=== PATIENT | male | born 2000 | race Two or more races ===

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

== ENCOUNTER 2021-08-03 19:52 | Emergency (ER) | payer MEDICAID ==
[~2021-08-03] VITALS: Ht 172.7 cm; Wt 59.0 kg
[2021-08-03] MEDS ORDERED: LIDOCAINE HCL/EPINEPHRINE 1%-EPI 1:100,000 50 ML VIAL INFIL ONE (20:15)
[2021-08-03] MEDS ORDERED: LIDOCAINE HCL/EPINEPHRINE 1%-EPI 1:100,000 20 ML VIAL INFIL NR (20:45)
[2021-08-03] MEDS ORDERED: IBUPROFEN 600MG TABLET PO ONE (22:45)
[2021-08-03] MEDS ORDERED: TETANUS, DIPHTHERIA, PERTUSSIS VAC/PF 0.5ML (>10YR OLD) IM ONE (22:45)
[2021-08-03] MEDS ORDERED: BACITRACIN ZINC OINT UDPKT TOP ONE (22:45)
[2021-08-03 23:40] VITALS: BP 126/64
== END 2021-08-03 23:51 | disposition home or self-care (01) ==
LOC: ER 19:52
DX: S61.511A Laceration without foreign body of right wrist, initial encounter (principal); Z98.890 Other specified postprocedural states; X58.XXXA Exposure to other specified factors, initial encounter; Y93.89 Activity, other specified; Y92.89 Other specified places as the place of occurrence of the external cause; Y99.8 Other external cause status
CPT/HCPCS: 12002; 90471; 90715; 99283; J3490

== ENCOUNTER 2022-04-05 10:27 | Emergency (ER) | payer MEDICAID ==
[~2022-04-05] VITALS: Ht 170.2 cm; Wt 63.0 kg
[2022-04-05 10:47] VITALS: BP 124/85
[2022-04-05] MEDS ORDERED: ONDA4TAB11 PO (10:54)
[2022-04-05] MEDS ORDERED: KETOROLAC 60MG/2ML VIAL IM STA (11:35)
[2022-04-05] MEDS ORDERED: FAMOTIDINE 20MG TABLET PO ONE (11:45)
[2022-04-05] MEDS ORDERED: METOCLOPRAMIDE HCL 10MG/2ML VIAL IM ONE (11:45)
[2022-04-05 12:04] LABS: CLARITY URINE CLEAR (CLEAR); COLOR URINE YELLOW (YELLOW); KETONES URINE 3+ (NEGATIVE); LEUKOCYTE ESTERASE URINE NEGATIVE (NEGATIVE); NITRITE URINE NEGATIVE (NEGATIVE); OCCULT BLOOD URINE NEGATIVE (NEGATIVE); PH URINE 6.5 (4.5-8.0); PROTEIN URINE NEGATIVE (NEGATIVE); SPECIFIC GRAVITY URINE 1.023 (1.005-1.030); UROBILINOGEN URINE 0.2 E.U./dL (0.2-1.0)
[2022-04-05 12:07] LABS: BASOPHILS % 0.6 % (0.0-2.0); EOSINOPHILS % 0.1 % (0.0-5.0); HEMOGLOBIN. 15.2 g/dL (14.0-18.0); LYMPHOCYTES % 20.3 % (20.0-50.0); MEAN CORPUSCULAR HEMOGLOBIN 32.1 pg (28.0-32.0); MEAN CORPUSCULAR VOLUME 95.2 fL (80.0-94.0); MEAN PLATELET VOLUME 9.5 fl (7.4-10.4); MONOCYTES % 6.6 % (2.0-8.0); NEUTROPHILS % 72.4 % (40.0-76.0); PLATELET 269 x1000/uL (130-400); RED BLOOD CELL COUNT 4.73 mill/uL (4.7-6.1); RED CELL DISTRIBUTION WIDTH 12.5 % (11.6-14.6)
[2022-04-05 12:14] LABS: CHLORIDE 107 mEq/L (98-107)
[2022-04-05] MEDS ORDERED: MECL-159 MT (13:48)
[2022-04-05] MEDS ORDERED: NAPR-681 PO (13:48)
== END 2022-04-05 14:26 | disposition home or self-care (01) ==
LOC: ER 10:48
DX: K29.00 Acute gastritis without bleeding (principal)
CPT/HCPCS: 36415; 80053; 81003; 83690; 85025; 93005; 96372; 99284; J1885; J2765

== ENCOUNTER 2022-09-03 09:13 | Emergency (ER) | payer MEDICAID ==
[~2022-09-03] VITALS: Ht 167.6 cm; Wt 75.0 kg
[~2022-09-03 09:13] MED LIST changes: -IBUPROFEN 200MG TABLET ONE; +MECL-159 MT; +NAPR-681 PO; +ONDA4TAB11 PO
[2022-09-03 09:22] VITALS: BP 132/105
[2022-09-03] MEDS ORDERED: ACETAMINOPHEN 325MG TABLET PO STA (09:39)
[2022-09-03] MEDS ORDERED: MAGNESIUM/ALUMINUM HYDROXIDE/SIMETHICONE 30ML UDC PO STA (09:39)
[2022-09-03] MEDS ORDERED: ONDANSETRON 4MG ODT PO ONE (09:45)
[2022-09-03] MEDS ORDERED: FAMOTIDINE 20MG TABLET PO ONE (09:45)
[2022-09-03 10:03] LABS: CLARITY URINE CLEAR (CLEAR); COLOR URINE YELLOW (YELLOW); KETONES URINE NEGATIVE (NEGATIVE); LEUKOCYTE ESTERASE URINE 2+ (NEGATIVE); NITRITE URINE NEGATIVE (NEGATIVE); OCCULT BLOOD URINE NEGATIVE (NEGATIVE); PROTEIN URINE NEGATIVE (NEGATIVE); SPECIFIC GRAVITY URINE 1.014 (1.005-1.030); UROBILINOGEN URINE 0.2 E.U./dL (0.2-1.0)
[2022-09-03 10:13] LABS: BASOPHILS % 0.6 % (0.0-2.0); HEMATOCRIT. 44.3 % (42.0-52.0); HEMOGLOBIN. 15.3 g/dL (14.0-18.0); LYMPHOCYTES % 11.6 % (20.0-50.0); MEAN PLATELET VOLUME 9.5 fl (7.4-10.4); NEUTROPHILS % 79.8 % (40.0-76.0); PLATELET 255 x1000/uL (130-400); RED BLOOD CELL COUNT 4.77 mill/uL (4.7-6.1); RED CELL DISTRIBUTION WIDTH 12.6 % (11.6-14.6)
[2022-09-03 10:25] LABS: CHLORIDE 106 mEq/L (98-107)
[2022-09-03] MEDS ORDERED: CEFTRIAXONE SODIUM 500 MG/VIAL IM ONE (10:45)
[2022-09-03] MEDS ORDERED: LIDOCAINE HCL 1% 20ML VIAL (Pyxis) INJ INFIL ONE (10:45)
[2022-09-03] MEDS ORDERED: DOXY100C5 MT (11:04)
[2022-09-03] MEDS ORDERED: FAMO-135 PO (11:04)
[2022-09-03] MEDS ORDERED: CEPH500C2 MT (11:04)
[2022-09-03] MEDS ORDERED: LIDOCAINE HCL 1% 20ML VIAL (Pyxis) INJ INFIL NR (11:15)
[2022-09-03] MEDS ORDERED: LIDOCAINE HCL 1% 10 MG/ML 10ML VIAL IJ NR (11:15)
[2022-09-03] MEDS ORDERED: CEFTRIAXONE SODIUM 500 MG/VIAL IM NR (11:30)
[2022-09-05 04:10] LABS: NEISSERIA GONORRHOEAE NAA Negative (Negative)
== END 2022-09-03 17:26 | disposition home or self-care (01) ==
LOC: ER 09:20
DX: R10.13 Epigastric pain (principal); R53.1 Weakness; R30.0 Dysuria; R42 Dizziness and giddiness; N39.0 Urinary tract infection, site not specified; Z79.899 Other long term (current) drug therapy
CPT/HCPCS: 36415; 80053; 81003; 83690; 83735; 85025; 87086; 87491; 87591; 93005; 96372; 99284; J0696; J3490; Q0162

== ENCOUNTER 2022-09-10 00:23 | Emergency (ER) | payer MEDICAID ==
[~2022-09-10] VITALS: Ht 167.6 cm; Wt 65.0 kg
[~2022-09-10 00:23] MED LIST changes: +CEPH500C2 MT; +DOXY100C5 MT; +FAMO-135 PO
[2022-09-10 01:26] VITALS: BP 137/100
== END 2022-09-10 03:17 | disposition home or self-care (01) ==
LOC: ER 00:23
DX: R06.02 Shortness of breath (principal); J45.909 Unspecified asthma, uncomplicated; Z20.822 Contact with and (suspected) exposure to COVID-19
CPT/HCPCS: 71045; 87426; 93005; 99285; C9803

== ENCOUNTER 2022-09-25 19:54 | Emergency (ER) | payer MEDICAID ==
[~2022-09-25] VITALS: Ht 170.2 cm; Wt 59.0 kg
[2022-09-25 20:05] VITALS: BP 138/93
[2022-09-25 23:48] LABS: BASOPHILS % 0.9 % (0.0-2.0); EOSINOPHILS % 2.9 % (0.0-5.0); HEMATOCRIT. 40.5 % (42.0-52.0); HEMOGLOBIN. 14.3 g/dL (14.0-18.0); LYMPHOCYTES % 21.3 % (20.0-50.0); MEAN CORPUSCULAR HEMOGLOBIN 31.7 pg (28.0-32.0); MEAN CORPUSCULAR VOLUME 89.8 fL (80.0-94.0); MONOCYTES % 7.6 % (2.0-8.0); NEUTROPHILS % 67.3 % (40.0-76.0); PLATELET 361 x1000/uL (130-400); RED BLOOD CELL COUNT 4.51 mill/uL (4.7-6.1); RED CELL DISTRIBUTION WIDTH 12.5 % (11.6-14.6)
[2022-09-25 23:54] LABS: CHLORIDE 102 mEq/L (98-107)
[2022-09-26] MEDS ORDERED: KETOROLAC 30MG/ML VIAL IV ONE
[2022-09-26] MEDS ORDERED: DEXAMETHASONE 0.5MG/5ML ORAL SYR PO ONE
[2022-09-26] MEDS ORDERED: DEXAMETHASONE 4MG TABLET PO NR (00:15)
[2022-09-26] MEDS ORDERED: KETOROLAC 30MG/ML VIAL IV NR (00:15)
== END 2022-09-26 02:57 | disposition home or self-care (01) ==
LOC: ER 19:54
DX: J04.0 Acute laryngitis (principal); F41.9 Anxiety disorder, unspecified; F32.A Depression, unspecified
CPT/HCPCS: 36415; 70360; 71045; 80053; 83605; 85025; 85651; 96374; 99284; J1885; J8540